=== PATIENT | female | born 1995 | race Caucasian/White ===

== ENCOUNTER 2017-11-16 21:27 | Emergency (ER) | payer SELFPAY ==
[~2017-11-16] VITALS: Ht 160 cm; Wt 54.4 kg
[2017-11-16 21:28] VITALS: Ht 160 cm; Wt 54.4 kg
[2017-11-16 23:44] VITALS: BP 107/90
== END 2017-11-16 23:44 | disposition home or self-care (01) ==
LOC: ED 21:27
DX: F41.9 Anxiety disorder, unspecified (principal); R06.00 Dyspnea, unspecified; J45.909 Unspecified asthma, uncomplicated
CPT/HCPCS: J2060; J7030